=== PATIENT | female | born 1945 | race Caucasian/White ===

== ENCOUNTER 2016-10-21 01:10 | Emergency (ER) | payer SELFPAY ==
[~2016-10-21] VITALS: Ht 167.6 cm; Wt 55.0 kg
[~2016-10-21 01:10] MED LIST: AC10R PR; ACET-2178 PO; ACET650S25 GT; CLON0.1T14 PO; Cephalexin Monohydrate PO; DEXTL PO; Docusate Sodium PO; HYDR-3927 PO; IPRA3AMP9 INH; LOV40 SUBCUT; Lactulose PO; VANJ5 PO
[2016-10-21] MEDS ORDERED: LORAZEPAM 1MG TABLET PO ONE ×2 (04:00→05:45)
[2016-10-21 07:17] LABS: CHLORIDE 107 mEq/L (98-107); INDEX HEMOLYSI 1 (1-3); INDEX ICTERIC 1 (1-4); INDEX LIPEMIC 1 (1-3)
[2016-10-21 07:21] LABS: BASOPHILS % 0.3 % (0.0-2.0); EOSINOPHILS % 0.9 % (0.0-5.0); HEMATOCRIT. 40.1 % (36.0-48.0); HEMOGLOBIN. 13.4 g/dL (12.0-16.0); LYMPHOCYTES % 27.2 % (20.0-50.0); MEAN CORPUSCULAR HEMOGLOBIN 30.7 pg (28.0-32.0); MEAN CORPUSCULAR HGB CONC 33.4 g/dL (31.0-37.0); MEAN CORPUSCULAR VOLUME 92.1 fL (81.0-99.0); MEAN PLATELET VOLUME 8.2 fl (7.4-10.4); MONOCYTES % 6.9 % (2.0-8.0); NEUTROPHILS % 64.7 % (40.0-76.0); PLATELET 244 x1000/uL (130-400); RED BLOOD CELL COUNT 4.35 mill/uL (4.2-5.4); RED CELL DISTRIBUTION WIDTH 14.7 % (11.6-14.6); WHITE BLOOD COUNT 8.3 x1000/uL (4.5-11.0)
[2016-10-21 07:25] LABS: ACETAMINOPHEN < 2 ug/mL (10-30); ANION GAP 13; CARBON DIOXIDE 27 mEq/L (21-32); ETHANOL BLOOD < 10 mg/dL; UREA NITROGEN BLOOD 8 mg/dL (7-21); eGFR > 60 mL/min (>60)
[2016-10-21 10:56] LABS: *AMPHETAMINES SCREEN URINE NEGATIVE (NEGATIVE); *BARBITURATES SCREEN URINE NEGATIVE (NEGATIVE); *BENZODIAZEPINES SCREEN URINE NEGATIVE (NEGATIVE); *COCAINE SCREEN URINE NEGATIVE (NEGATIVE); CANNABINOID URINE SCREEN NEGATIVE (NEGATIVE); ECSTASY MDMA SCREEN URINE NEGATIVE (NEGATIVE); METHADONE URINE SCREEN NEGATIVE (NEGATIVE); OPIATES URINE SCREEN NEGATIVE (NEGATIVE); PHENCYCLIDINE URINE SCREEN NEGATIVE (NEGATIVE)
[2016-10-21 22:52] VITALS: BP 124/94
== END 2016-10-21 22:56 | disposition home or self-care (01) ==
LOC: ER 01:10
DX: F29 Unspecified psychosis not due to a substance or known physiological condition (principal); E11.9 Type 2 diabetes mellitus without complications; F10.21 Alcohol dependence, in remission; Z72.0 Tobacco use; J45.909 Unspecified asthma, uncomplicated
CPT/HCPCS: 36415; 80048; 80305; 80307; 80329; 82962; 85025; 99284; G0482

== ENCOUNTER 2016-10-26 14:33 | Inpatient (IN) | payer MEDICARE ==
[~2016-10-26] VITALS: Ht 167.6 cm; Wt 58.1 kg
[2016-10-26] MEDS ORDERED: MAGNESIUM/ALUMINUM HYDROXIDE/SIMETHICONE 30ML UDC PO PRN (15:45)
[2016-10-26] MEDS ORDERED: LORAZEPAM 2MG/ML CPJ IV PRN (15:45)
[2016-10-26] MEDS ORDERED: ACETAMINOPHEN 325MG TABLET PO PRN (15:45)
[2016-10-26] MEDS ORDERED: IPRATROPIUM/ALBUTEROL 0.5-3(2.5)MG/3ML NEB INH PRN (15:45)
[2016-10-26] MEDS ORDERED: CLONIDINE 0.1MG TABLET PO PRN ×2 (15:45→16:15)
[2016-10-26] MEDS ORDERED: ONDANSETRON HCL 4MG/2ML VIAL IV PRN (15:45)
[2016-10-26 16:00] VITALS: BP_SYST 100; BP_SYST 123; BP_DIAS 65; BP_DIAS 80
[2016-10-26] MEDS ORDERED: IPRATROPIUM/ALBUTEROL 0.5-3(2.5)MG/3ML NEB HHN PRN (16:00)
[2016-10-26] MEDS ORDERED: HYDROCODONE/ACETAMINOPHEN 5/325MG TABLET PO PRN (16:15)
[2016-10-26] MEDS ORDERED: DEXTROSE 50% WATER 50ML SYRINGE IV PRN (16:15)
[2016-10-26] MEDS: BLOOD SUGAR DIAGNOSTIC STRIP TEST SCH ×2 (17:20→21:00)
[2016-10-26] MEDS: INSULIN LISPRO 100 UNITS/ML SUBCUT SCH ×2 (17:50→21:00)
[2016-10-26] MEDS ORDERED: GUAIFENESIN 200MG/10ML SUGAR FREE UDC PO PRN (18:30)
[2016-10-26] MEDS ORDERED: QUETIAPINE FUMARATE 25MG TABLET PO SCH (18:30)
[2016-10-26] MEDS ORDERED: NICOTINE 21MG PATCH TD NR (19:30)
[2016-10-26 20:00] VITALS: BP 98/71
[2016-10-26] MEDS ORDERED: ZOLPIDEM TARTRATE 5MG TABLET PO PRN (21:00)
[2016-10-26] MEDS ORDERED: RISPERIDONE 0.5MG TABLET PO SCH (21:00)
[2016-10-27] VITALS: BP 98/66
[2016-10-27 04:00] VITALS: BP 112/87
[2016-10-27] MEDS: BLOOD SUGAR DIAGNOSTIC STRIP TEST SCH ×4 (06:22→20:23)
[2016-10-27] MEDS: INSULIN LISPRO 100 UNITS/ML SUBCUT SCH ×4 (06:54→20:23)
[2016-10-27 08:00] VITALS: BP 104/67
[2016-10-27] MEDS: ENOXAPARIN 40MG/0.4ML SYR SUBCUT SCH (09:00)
[2016-10-27] MEDS: RISPERIDONE 1MG TABLET PO SCH ×2 (09:07→17:55)
[2016-10-27] MEDS: NICOTINE 21MG PATCH TD SCH (09:15)
[2016-10-27 13:00] VITALS: BP 102/69
[2016-10-27 16:00] VITALS: BP 120/82
[2016-10-27 20:04] VITALS: BP 91/60
[2016-10-27] MEDS: CLOTRIMAZOLE 1% CREAM 30GM TOP SCH (20:21)
[2016-10-27] MEDS ORDERED: CLOTRIMAZOLE 1% CREAM 30GM TOP SCH (21:00)
[2016-10-28] VITALS: BP 102/70
[2016-10-28] MEDS: BLOOD SUGAR DIAGNOSTIC STRIP TEST SCH ×4 (00:30→17:16)
[2016-10-28] MEDS: INSULIN LISPRO 100 UNITS/ML SUBCUT SCH ×4 (00:30→17:16)
[2016-10-28] MEDS: CLOTRIMAZOLE 1% CREAM 30GM TOP SCH ×2 (00:30→10:41)
[2016-10-28 04:00] VITALS: BP 116/76
[2016-10-28 08:00] VITALS: BP 92/67
[2016-10-28] MEDS: ENOXAPARIN 40MG/0.4ML SYR SUBCUT SCH (09:00)
[2016-10-28] MEDS: RISPERIDONE 1MG TABLET PO SCH ×2 (10:40→17:15)
[2016-10-28] MEDS: NICOTINE 21MG PATCH TD SCH (10:41)
[2016-10-28 12:00] VITALS: BP 115/80
[2016-10-28 19:31] VITALS: BP 116/94
[2016-10-28 23:47] VITALS: BP 99/72
[2016-10-29] MEDS: RISPERIDONE 1MG TABLET PO SCH ×3 (00:17→17:00)
[2016-10-29] MEDS: BLOOD SUGAR DIAGNOSTIC STRIP TEST SCH ×4 (00:31→20:12)
[2016-10-29 03:27] VITALS: BP 92/76
[2016-10-29] MEDS: INSULIN LISPRO 100 UNITS/ML SUBCUT SCH ×4 (07:50→20:12)
[2016-10-29 08:00] VITALS: BP 109/80
[2016-10-29] MEDS: ENOXAPARIN 40MG/0.4ML SYR SUBCUT SCH (09:00)
[2016-10-29] MEDS: NICOTINE 21MG PATCH TD SCH (10:43)
[2016-10-29] MEDS: CLOTRIMAZOLE 1% CREAM 30GM TOP SCH ×2 (10:46→20:12)
[2016-10-29 12:00] VITALS: BP 100/63
[2016-10-29 16:00] VITALS: BP 108/68
[2016-10-29 17:54] VITALS: BP 100/63
== END 2016-10-29 21:05 | DRG 190 ==
LOC: 6EST 14:33
PROVIDERS: ADMIT Family Medicine; ATTEND Family Medicine
DX: J44.1 Chronic obstructive pulmonary disease with (acute) exacerbation (principal); G93.40 Encephalopathy, unspecified; R62.7 Adult failure to thrive; L89.90 Pressure ulcer of unspecified site, unspecified stage; M48.00 Spinal stenosis, site unspecified; D63.8 Anemia in other chronic diseases classified elsewhere; F31.9 Bipolar disorder, unspecified; F29 Unspecified psychosis not due to a substance or known physiological condition; E11.42 Type 2 diabetes mellitus with diabetic polyneuropathy; F17.210 Nicotine dependence, cigarettes, uncomplicated; R26.9 Unspecified abnormalities of gait and mobility
CPT/HCPCS: 70551; 71010; 82962; 97116; 97162; A6261; J1650